=== PATIENT | female | born 1980 | race Caucasian/White ===

== ENCOUNTER 2016-12-21 07:08 | Emergency (ER) | payer BC ==
[2016-12-21 07:25] VITALS: BP 128/88
--- NOTE | 2016-12-21 07:37 | UC ---
Throat Pain/Nasal Gus HPI - HPI Summary HPI Summary: [address], PAIN WITH SWALLOWING. HAD SUBJECTIVE FEVER. NO COUGH OR CONGESTION. - History of Current Complaint Chief Complaint: UCGeneralIllness Stated Complaint: SORE THROAT Time Seen by Provider: 12/21/16 07:13 Hx Obtained From: Patient Hx Last Menstrual Period: 2 weeks ago Onset/Duration: Gradual Onset, Lasting Days, Still Present Severity: Moderate Pain Intensity: 6 Pain Scale Used: 0-10 Numeric Cough: None Associated Signs & Symptoms: Positive: Fever. Negative: Wheezing, Hoarseness, Sinus Discomfort, Nasal Discharge, Vomiting, Rash - Allergies/Home Medications Allergies/Adverse Reactions: Allergies Allergy/AdvReac Type Severity Reaction Status Date / Time No Known Allergies Allergy Verified 01/18/16 07:28 PMH/Surg Hx/FS Hx/Imm Hx Respiratory History: Asthma - Surgical History Surgical History: Yes Surgery Procedure, Year, and Place: c-sections - Family History Known Family History: Positive: Hypertension Negative: Cardiac Disease, Diabetes - Social History Alcohol Use: Occasionally Substance Use Type: None Smoking Status (MU): Never Smoked Tobacco Review of Systems Constitutional: Fever ENT: Sore Throat Respiratory: Negative Cardiovascular: Negative Gastrointestinal: Negative All Other Systems Reviewed And Are Negative: Yes Physical Exam Triage Information Reviewed: Yes Appearance: Well-Appearing, No Pain Distress, Well-Nourished Vital Signs: Initial Vital Signs Temp 98.4 F 12/21/16 07:21 Pulse 64 12/21/16 07:21 BP 128/88 12/21/16 07:21 Pulse Ox 98 12/21/16 07:21 Vital Signs Reviewed: Yes Eyes: Positive: Conjunctiva Clear ENT: Positive: Hearing grossly normal, Pharyngeal erythema, TMs normal. Negative: Tonsillar swelling, Tonsillar exudate Neck: Positive: Supple, Nontender, No Lymphadenopathy Respiratory Exam: Normal Cardiovascular Exam: Normal Abdomen Description: Positive: Soft Musculoskeletal: Positive: No Edema Neurological: Positive: Alert Psychological: Positive: Age Appropriate Behavior Skin: Negative: rashes Diagnostics - Laboratory Diagnostic Studies Completed/Ordered: RAPID STREP POSITIVE Throat Pain/Nasal Course/Dx - Differential Dx/Diagnosis Provider Diagnoses: STREP PHARYNGITIS Discharge - Discharge Plan Condition: Stable Disposition: HOME Prescriptions: Amoxicillin PO (*) [Amoxicillin 500 MG CAP*] 1,000 mg PO DAILY #20 cap Patient Education Materials: Strep Throat (ED) Referrals: Pam Gresham MD [Primary Care Provider] - If Needed Additional Instructions: RAPID STREP POSITIVE OTC CHLORASEPTIC OR CEPACOL LOZENGES FOR SORE THROAT NEEDED ONCE SYMPTOMS RESOLVED - NEW TOOTHBRUSH DO NOT SHARE FOOD, DRINK, UTENSILS
== END 2016-12-21 08:11 | disposition home or self-care (01) ==
LOC: UCEAST 07:08
DX: J02.0 Streptococcal pharyngitis (principal)
CPT/HCPCS: 87651; 99212; G0463

== ENCOUNTER 2017-03-06 08:27 | Emergency (ER) | payer BC ==
--- NOTE | 2017-03-06 09:59 | RAD ---
Indication: Left foot swelling and pain. 3 views of the left foot demonstrates no fracture. No other bone or joint abnormality is identified. IMPRESSION: No fracture of the left foot is noted.
[2017-03-06 10:44] VITALS: BP 134/88
--- NOTE | 2017-03-16 16:48 | UC ---
Rome May Nilda, scribed for Sherrie Reyes DO on 03/06/17 at 0933 . Lower Extremity/Ankle HPI - HPI Summary HPI Summary: This patient is a 37 year old F presenting to [facility] with a chief complaint of left ankle pain and swelling s/p twisting ankle while running this morning at 0700. She rates the pain 5/10 in severity. Symptoms aggravated by bearing weight and alleviated by rest and elevation. Patient reports swelling of the left ankle though she can ambulate. She denies SOB, dyspnea, fever, chills, CP, N/V/D, and abdominal pain. She has sustained previous breaks and sprains to this ankle before. - History of Current Complaint Chief Complaint: UCLowerExtremity Stated Complaint: FOOT INJURY Time Seen by Provider: 03/06/17 09:25 Hx Obtained From: Patient Hx Last Menstrual Period: now Onset/Duration: Sudden Onset, Lasting Hours, Still Present Severity Currently: Moderate Pain Intensity: 5 Pain Scale Used: 0-10 Numeric Aggravating Factor(s): Other - Bearing weight Alleviating Factor(s): Rest, Elevation Able to Bear Weight: Yes - with pain - Allergies/Home Medications Allergies/Adverse Reactions: Allergies Allergy/AdvReac Type Severity Reaction Status Date / Time No Known Allergies Allergy Verified 01/18/16 07:28 PMH/Surg Hx/FS Hx/Imm Hx - Surgical History Surgical History: Yes Surgery Procedure, Year, and Place: c-sections - Family History Known Family History: Negative: Cardiac Disease, Hypertension, Diabetes - Social History Alcohol Use: Occasionally Substance Use Type: None Smoking Status (MU): Never Smoked Tobacco - Immunization History Most Recent Influenza Vaccination: utd Most Recent Tetanus Shot: unsure Review of Systems Respiratory: Negative Musculoskeletal: Other: - swelling and pain of left ankle All Other Systems Reviewed And Are Negative: Yes - Comments Additional Review of Systems Comments: Patient denies SOB, dyspnea, fever, chills, CP, N/V/D, and abdominal pain Physical Exam Triage Information Reviewed: Yes Appearance: Well-Appearing, No Pain Distress, Well-Nourished Vital Signs: Initial Vital Signs Temp 97.5 F 03/06/17 08:42 Pulse 51 03/06/17 08:42 Resp 18 03/06/17 08:42 BP 134/75 03/06/17 08:42 Pulse Ox 100 03/06/17 08:42 Vital Signs Reviewed: Yes Eyes: Positive: Conjunctiva Clear. Negative: Discharge ENT: Positive: Hearing grossly normal. Negative: Muffled/hoarse voice Neck exam: Normal Neck: Positive: Supple Respiratory: Positive: Lungs clear, Normal breath sounds, No respiratory distress, No accessory muscle use Cardiovascular: Positive: RRR, No Murmur Musculoskeletal: Positive: Other: - Swelling over lateral aspect of mid left foot with associated bony tenderness. No tenderness over base of 5th metatarsal. Neurological: Positive: Alert, Muscle Tone Normal Psychological Exam: Normal Psychological: Positive: Age Appropriate Behavior Skin Exam: Normal Skin: Positive: Other - Warm, Dry, Normal Color Lower Extremity Course/Dx - Course Course Of Treatment: This patient is a 37 year old F presenting to [facility] with a chief complaint of left ankle pain and swelling s/p twisting ankle while running this morning at 0700. She rates the pain 5/10 in severity. Symptoms aggravated by bearing weight and alleviated by rest and elevation. Patient reports swelling of the left ankle though she can ambulate. She denies SOB, dyspnea, fever, chills, CP, N/V/D, and abdominal pain. She has sustained previous breaks and sprains to this ankle before. Patients medication reviewed this visit. . [1020] consult with radiologist to confirm fracture on left foot. Patient will be discharged with a diagnosis of calcaneal fracture. She was given the following instructions: WE HAVE OFFERED YOU A BOOT AND CRUTCHES HERE BUT YOU HAVE DECLINED YOU ALREADY HAVE BOTH ASSERTIVE DEVICES AT HOME. PLEASE USE THEM CONSISTENTLY UNTIL YOU ARE SEEN BY ORTHO. Patient is agreeable with this plan. - Differential Dx/Diagnosis Provider Diagnoses: calcaneal fracture Discharge - Discharge Plan Condition: Stable Disposition: HOME Patient Education Materials: Crutch Instructions (ED), Foot Fracture in Adults (ED) Referrals: Karen Valdes MD [Medical Doctor] - (fOLLOW UP IN 1- 5 DAYS OR PER ORTHO) Pam Gresham MD [Primary Care Provider] - (IF NEEDED) Additional Instructions: WE HAVE OFFERED YOU A BOOT AND CRUTCHES HERE BUT YOU HAVE DECLINED YOU ALREADY HAVE BOTH ASSERTIVE DEVICES AT HOME. PLEASE USE THEM CONSISTENTLY UNTIL YOU ARE SEEN BY ORTHO. WE HAVE MADE A COPY OF YOUR XRAY FOR YOU TO TAKE WITH YOU SO THAT YOU CAN BRING IT TO YOUR ORTHOPEDIST. The documentation as recorded by the Rome frey Nilda accurately reflects the service I personally performed and the decisions made by me, Sherrie Reyes DO.
== END 2017-03-06 10:47 | disposition home or self-care (01) ==
LOC: UCEAST 08:27
DX: S99.912A Unspecified injury of left ankle, initial encounter (principal); X50.1XXA Overexertion from prolonged static or awkward postures, initial encounter; Y93.02 Activity, running; Y92.9 Unspecified place or not applicable
CPT/HCPCS: 99211; G0463